=== PATIENT | male | born 1975 | race African-American/Black ===

== ENCOUNTER 2016-07-27 10:00 | Emergency (ER) | payer BC ==
[~2016-07-27] VITALS: Ht 180.3 cm; Wt 92.0 kg
[2016-07-27 11:25] LABS: BASOPHILS % 0.8 % (0.0-2.0); EOSINOPHILS % 2.2 % (0.0-5.0); HEMATOCRIT. 44.1 % (42.0-52.0); HEMOGLOBIN. 15.3 g/dL (14.0-18.0); LYMPHOCYTES % 44.1 % (20.0-50.0); MEAN CORPUSCULAR HEMOGLOBIN 31.4 pg (28.0-32.0); MEAN CORPUSCULAR HGB CONC 34.7 g/dL (31.0-37.0); MEAN CORPUSCULAR VOLUME 90.7 fL (80.0-94.0); MEAN PLATELET VOLUME 8.5 fl (7.4-10.4); MONOCYTES % 7.4 % (2.0-8.0); NEUTROPHILS % 45.5 % (40.0-76.0); PLATELET 214 x1000/uL (130-400); RED BLOOD CELL COUNT 4.86 mill/uL (4.7-6.1); RED CELL DISTRIBUTION WIDTH 12.9 % (11.6-14.6); WHITE BLOOD COUNT 3.6 x1000/uL (4.5-11.0)
[2016-07-27 12:25] LABS: CLARITY URINE CLEAR (CLEAR); COLOR URINE YELLOW (YELLOW); GLUCOSE URINE NEGATIVE (NEGATIVE); KETONES URINE NEGATIVE (NEGATIVE); LEUKOCYTE ESTERASE URINE NEGATIVE (NEGATIVE); NITRITE URINE NEGATIVE (NEGATIVE); OCCULT BLOOD URINE NEGATIVE (NEGATIVE); PROTEIN URINE NEGATIVE (NEGATIVE); SPECIFIC GRAVITY URINE 1.013 (1.005-1.030)
[2016-07-27 13:30] VITALS: BP 118/82
== END 2016-07-27 13:31 | disposition home or self-care (01) ==
LOC: ER 11:07
DX: R31.9 Hematuria, unspecified (principal); Z98.890 Other specified postprocedural states
CPT/HCPCS: 36415; 81003; 85025; 99284

== ENCOUNTER 2016-12-03 08:47 | Emergency (ER) | payer BC ==
[~2016-12-03] VITALS: Ht 185.4 cm; Wt 87.0 kg
[2016-12-03 15:50] VITALS: BP 129/69
== END 2016-12-03 16:09 | disposition home or self-care (01) ==
LOC: ER 13:21
DX: M79.89 Other specified soft tissue disorders (principal); M25.571 Pain in right ankle and joints of right foot
CPT/HCPCS: 73610; 99284

== ENCOUNTER 2018-11-08 09:37 | Emergency (ER) | payer SELFPAY ==
[~2018-11-08] VITALS: Ht 180.3 cm; Wt 89.0 kg
[2018-11-08 11:17] VITALS: BP 122/76
== END 2018-11-08 11:18 | disposition home or self-care (01) ==
LOC: ER 09:37
DX: S40.862A Insect bite (nonvenomous) of left upper arm, initial encounter (principal); S40.861A Insect bite (nonvenomous) of right upper arm, initial encounter; F17.210 Nicotine dependence, cigarettes, uncomplicated; Z98.890 Other specified postprocedural states; W57.XXXA Bitten or stung by nonvenomous insect and other nonvenomous arthropods, initial encounter; Y93.89 Activity, other specified; Y92.018 Other place in single-family (private) house as the place of occurrence of the external cause
CPT/HCPCS: 99282

== ENCOUNTER 2022-11-13 13:09 | Emergency (ER) | payer MEDICAID ==
[~2022-11-13] VITALS: Ht 180.3 cm; Wt 88.0 kg
[2022-11-13 13:19] VITALS: O2SAT 100
[2022-11-13] MEDS ORDERED: FLUT9.9S BOTHNSTRLS (14:37)
[2022-11-13] MEDS ORDERED: CETI10CA11 MT (14:37)
[2022-11-13 15:16] VITALS: BP 134/89; PULSE 74; RESP 18; TEMP 98.1
== END 2022-11-13 15:18 | disposition home or self-care (01) ==
LOC: ER 13:09
DX: J30.9 Allergic rhinitis, unspecified (principal)
CPT/HCPCS: 99283

== ENCOUNTER 2023-02-01 13:35 | Emergency (ER) | payer MEDICAID, OTHER ==
[~2023-02-01] VITALS: Ht 182.9 cm; Wt 86.0 kg
[~2023-02-01 13:35] MED LIST: CETI10CA11 MT; FLUT9.9S BOTHNSTRLS
[2023-02-01 13:42] VITALS: O2SAT 100
[2023-02-01] MEDS ORDERED: ACETAMINOPHEN 325MG TABLET PO ONE (17:00)
[2023-02-01] MEDS ORDERED: TOPUD MT (19:21)
[2023-02-01] MEDS ORDERED: AMOX1TAB16 MT (19:23)
[2023-02-01 23:14] VITALS: BP 137/89; PULSE 100; RESP 18; TEMP 98
== END 2023-02-01 23:15 | disposition home or self-care (01) ==
LOC: ER 13:35
DX: J32.0 Chronic maxillary sinusitis (principal); R51.9 Headache, unspecified; Z98.890 Other specified postprocedural states
CPT/HCPCS: 99284

== ENCOUNTER 2023-05-02 09:05 | Emergency (ER) | payer OTHER, MEDICAID ==
[~2023-05-02] VITALS: Ht 177.8 cm; Wt 90.0 kg
[~2023-05-02 09:05] MED LIST changes: +AMOX1TAB16 MT; +TOPUD MT
[2023-05-02 09:07] VITALS: BP 146/93; RESP 20; TEMP 97.7; O2SAT 100
[2023-05-02 09:16] VITALS: PULSE 89
[2023-05-02] MEDS ORDERED: VANC125C11 MT (09:59)
== END 2023-05-02 10:07 | disposition home or self-care (01) ==
LOC: ER 09:23
DX: A04.72 Enterocolitis due to Clostridium difficile, not specified as recurrent (principal); I49.9 Cardiac arrhythmia, unspecified; Z88.0 Allergy status to penicillin
CPT/HCPCS: 93005; 99283

== ENCOUNTER 2024-07-18 09:11 | Emergency (ER) | payer OTHER ==
[~2024-07-18] VITALS: Ht 180.3 cm; Wt 93.6 kg
[~2024-07-18 09:11] MED LIST changes: +VANC125C11 MT
[2024-07-18 09:18] VITALS: O2SAT 98
[2024-07-18] MEDS: KETOROLAC 15MG/ML VIAL IM ONE (09:45)
[2024-07-18] MEDS: ACETAMINOPHEN 325MG TABLET PO ONE (09:46)
[2024-07-18] MEDS: LIDOCAINE 5% PATCH TOP ONE (09:46)
[2024-07-18] MEDS ORDERED: CYCL10TA21 MT (10:10)
[2024-07-18] MEDS ORDERED: LIDO700A30 TP (10:10)
[2024-07-18 10:39] VITALS: BP 142/85; PULSE 85; RESP 18; TEMP 36.9; O2SAT 98
== END 2024-07-18 10:49 | disposition home or self-care (01) ==
LOC: ER 09:11
DX: M54.9 Dorsalgia, unspecified (principal); Z88.0 Allergy status to penicillin; Z79.899 Other long term (current) drug therapy
CPT/HCPCS: 99283; 96372; J1885